=== PATIENT | female | born 1945 | race African-American/Black ===

== ENCOUNTER 2016-08-02 13:06 | Emergency (ER) | payer MEDICARE ==
[~2016-08-02] VITALS: Ht 177.8 cm; Wt 110.2 kg
[~2016-08-02 13:06] MED LIST: BENADRYL25 MG ORAL; COUMADIN10 MG PO; COZAAR50 MG PO; LORATADINE10 M1 PO; MAXIDE PO; METOPROLOL SUCC50 MG ORAL; MONTELUKAST SOD10 MG ORAL; NITROFURANTOIN100 M2 ORAL; ONDANSETRON ODT4 MG PO; PREDNISONE20 MG ORAL; RANITIDINE HCL150 MG ORAL; SPIRONOLACTONE1 EACH ORAL; SYNTHROID150 MCG PO; VALIUM5 MG PO; XARELTO10 MG ORAL
--- NOTE | 2016-08-02 13:51 | Emergency Room Report ---
History of Present Illness General Chief Complaint: Female Urogenital Problems Source: Patient Present Illness HPI Patient is a 70-year-old female who presented after having lower abdominal pain as well as urinary retention. She stated that she had not been able to void for one day. Patient states she has prior history of fibroid uterus. Patient had recently been on antibiotics for urinary tract infection. She had been able to ambulatory. She denied any low back pain. Allergies: Coded Allergies: CEPHALEXIN MONOHYDRATE (Verified Allergy, Severe, Rash, 08/18/12) TETRACYCLINE (Verified Allergy, Severe, Rash, 08/18/12) ASPIRIN (Verified Allergy, Intermediate, ABD CRAMPS, 08/18/12) CIPROFLOXACIN (Verified Allergy, Mild, 06/20/15) hives ERYTHROMYCIN LACTOBIONATE (Verified Allergy, Mild, Rash, ITCH, 08/18/12) IODINE (Verified Allergy, Mild, Itching, 08/18/12) CORN (Verified Allergy, Unknown, Hives, RASH, ITCH, 06/20/15) POTASSIUM (Verified Allergy, Unknown, 06/20/15) Patient History Past Medical History: see triage record Reviewed Nursing Documentation: PMH: Agreed, PSxH: Agreed Nursing Documentation-PMH Past Medical History: No History, Except For Hx Hypertension: Yes Hx Asthma: Yes Hx COPD: Yes Hx Cancer: Yes - LEFT BREAST CANCER, DOUBLE MASTECTOMY Review of Systems All Other Systems: negative except mentioned in HPI Physical Exam Vital Signs Date Time Temp Pulse Resp B/P Pulse Ox O2 Delivery O2 Flow Rate FiO2 08/02/16 13:16 98.4 101 18 172/105 92 Room Air Sp02 EP Interpretation: reviewed, normal General Appearance: normal inspection, well appearing, no apparent distress, alert, GCS 15, non-toxic Head: atraumatic ENT: normal ENT inspection, hearing grossly normal, normal voice Neck: normal inspection, full range of motion, supple, no bony tend Respiratory: normal inspection, lungs clear, normal breath sounds, no respiratory distress, no retraction, no wheezing Cardiovascular #1: regular rate, rhythm, no edema Gastrointestinal: normal inspection, normal bowel sounds, non tender, soft, no guarding, no hernia, tenderness Rectal: normal exam, normal rectal tone Genitourinary: no CVA tenderness Musculoskeletal: normal inspection, back normal, normal range of motion Neurologic: normal inspection, alert, oriented x3, responsive, beverage steward III-XII nml as tested, speech normal Psychiatric: normal inspection, judgement/insight normal, mood/affect normal Skin: other - excoriation to vulvar area Medical Decision Making Diagnostic Impression: Primary Impression: Kidney stone on right side Additional Impression: Yeast dermatitis ER Course Patient presented for abdominal pain. Differential diagnoses included ischemic bowel, appendicitis, perforated viscus, abdominal aortic aneurysm, inferior myocardial infarction, viral gastroenteritis. Because of complexity of patient' s case laboratory testing and imaging studies were ordered. CT the abdomen pelvis read by radiology showed a approximately 2 mm kidney stone. The patient was given IV fluid as well as prescription for antibiotics. The patient was noted to have a large amount of excoriations to her perineal area and was started on a cream for presumed yeast infection.laboratory testing showed a mildly elevated white count. The patient had a Cruz catheter placed initially to rule out acute urinary retention. There is a small amount of clear urine initially . Patient was advised followup with her urologist who had previously seen her for similar symptoms.The patient is advised to follow up with primary care doctor in 1-2 days. Patient is advised to return if any worsening condition or if any changes in status that are concerning. Labs Test 08/02/16 14:15 08/02/16 15:20 Urine Color Pale yellow Urine Appearance Slightly cloudy Urine pH 5 (4.5-8.0) Urine Specific [place] 1.015 (1.005-1.035) Urine Protein 1+ (NEGATIVE) Urine Glucose (UA) Negative (NEGATIVE) Urine Ketones Negative (NEGATIVE) Urine Occult Blood 5+ (NEGATIVE) Urine Nitrite Negative (NEGATIVE) Urine Bilirubin Negative (NEGATIVE) Urine Urobilinogen Normal MG/DL (0.0-1.0) Urine Leukocyte Esterase 1+ (NEGATIVE) Urine RBC 20-30 /HPF (0 - 2) Urine WBC 0-2 /HPF (0 - 2) Urine Squamous Epithelial Cells Few /LPF (NONE/OCC) Urine Bacteria Occasional /HPF (NONE) White Blood Count 12.1 K/UL (4.8-10.8) Red Blood Count 4.46 M/UL (4.20-5.40) Hemoglobin 13.4 G/DL (12.0-16.0) Hematocrit 40.9 % (37.0-47.0) Mean Corpuscular Volume 92 FL (80-99) Mean Corpuscular Hemoglobin 29.9 PG (27.0-31.0) Mean Corpuscular Hemoglobin Concent 32.6 G/DL (32.0-36.0) Red Cell Distribution Width 12.6 % (11.6-14.8) Platelet Count 192 K/UL (150-450) Mean Platelet Volume 6.7 FL (6.5-10.1) Neutrophils (%) (Auto) 74.7 % (45.0-75.0) Lymphocytes (%) (Auto) 14.9 % (20.0-45.0) Monocytes (%) (Auto) 7.2 % (1.0-10.0) Eosinophils (%) (Auto) 2.5 % (0.0-3.0) Basophils (%) (Auto) 0.8 % (0.0-2.0) Prothrombin Time 10.7 SEC (9.30-11.50) Prothromb Time International Ratio 1.1 (0.9-1.1) Activated Partial Thromboplast Time 25 SEC (23-33) Sodium Level 134 mEQ/L (135-145) Potassium Level 4.1 mEQ/L (3.4-4.9) Chloride Level 94 mEQ/L (98-107) Carbon Dioxide Level 23 mEQ/L (20-30) Anion Gap 17 (5-15) Blood Urea Nitrogen 27 mg/dL (7-23) Creatinine 1.1 mg/dL (0.5-0.9) Estimat Glomerular Filtration Rate 59.9 mL/min (>60) Glucose Level 101 mg/dL (74-106) Calcium Level 10.1 mg/dL (8.6-10.2) Total Bilirubin 0.5 mg/dL (0.0-1.2) Aspartate Amino Transf (AST/SGOT) 18 U/L (5-40) Alanine Aminotransferase (ALT/SGPT) 12 U/L (3-33) Alkaline Phosphatase 105 U/L (35-104) Troponin I < 0.30 ng/mL (<=0.30) Total Protein 7.6 g/dL (6.6-8.7) Albumin 3.8 g/dL (3.5-5.2) Globulin 3.8 g/dL Albumin/Globulin Ratio 1.0 (1.0-2.7) Lipase 42 U/L (< 60) Last Vital Signs Date Time Temp Pulse Resp B/P Pulse Ox O2 Delivery O2 Flow Rate FiO2 08/02/16 13:16 98.4 101 18 172/105 92 Room Air Status: unchanged Disposition: ADMITTED INPATIENT Condition: Serious Scripts Clotrimazole* (LOTRIMIN*) 15 Gm Cream..g. 1 APPLIC TOPIC TWICE A DAY, #15 GM Prov: Pedro Barrientos 08/02/16 Docusate Sodium* (COLACE*) 100 Mg Capsule 100 MG ORAL TWICE A DAY, #60 CAP Prov: Pedro Barrientos 08/02/16 Tramadol Hcl* (ULTRAM*) 50 Mg Tablet 50 MG ORAL Q6H Y for For Pain, #30 TAB 0 Refills Prov: Pedro Barrientos 08/02/16 Referrals: NON PHYSICIAN (PCP) Pedro Barrientos Aug 02, 2016 13:51
[2016-08-02 14:59] LABS: APPEARANCE,URINE SLIGHTLY CLOUDY; KETONES,URINE NEGATIVE (NEGATIVE); LEUKOCYTE ESTERASE ,URINE 1+ (NEGATIVE); NITRITE,URINE NEGATIVE (NEGATIVE); PH,URINE 5 (4.5-8.0); PROTEIN,URINE 1+ (NEGATIVE); UROBILINOGEN,URINE NORMAL MG/DL (0.0-1.0)
[2016-08-02 15:07] LABS: BACTERIA,URINE OCCASIONAL /HPF; RBC,URINE 20-30 /HPF (0 - 2); SQUAMOUS EPITHELIAL CELL,UR FEW /LPF (NONE/OCC); WBC,URINE 0-2 /HPF (0 - 2)
[2016-08-02 15:32] VITALS: BP 172/105
[2016-08-02 16:30] LABS: BASOPHILS % (AUTO) 0.8 % (0.0-2.0); EOSINOPHILS % (AUTO) 2.5 % (0.0-3.0); LYMPHOCYTES % (AUTO) 14.9 % (20.0-45.0); MEAN CORPUSCULAR HEMOGLOBIN 29.9 PG (27.0-31.0); MEAN CORPUSCULAR HGB CONC 32.6 G/DL (32.0-36.0); MEAN CORPUSCULAR VOLUME 92 FL (80-99); MEAN PLATELET VOLUME 6.7 FL (6.5-10.1); MONOCYTES % (AUTO) 7.2 % (1.0-10.0); NEUTROPHILS % (AUTO) 74.7 % (45.0-75.0); PLATELET COUNT 192 K/UL (150-450); RED BLOOD COUNT 4.46 M/UL (4.20-5.40); RED CELL DISTRIBUTION WIDTH 12.6 % (11.6-14.8); WHITE BLOOD COUNT 12.1 K/UL (4.8-10.8)
[2016-08-02 16:35] LABS: INR 1.1 (0.9-1.1); PROTHROMBIN TIME 10.7 SEC (9.30-11.50)
[2016-08-02 16:41] LABS: CALCIUM 10.1 mg/dL (8.6-10.2); CREATININE 1.1 mg/dL (0.5-0.9); GLOMERULAR FILTRATION RATE 59.9 mL/min (>60); POTASSIUM 4.1 mEQ/L (3.4-4.9); TOTAL PROTEIN 7.6 g/dL (6.6-8.7)
[2016-08-02 16:48] LABS: TROPONIN I < 0.30 ng/mL (<=0.30)
[2016-08-02] MEDS ORDERED: BACTRIM DS TAB1 EAC1 ORAL (17:05)
[2016-08-02] MEDS ORDERED: TRAMADOL HCL50 MG ORAL (17:05)
[2016-08-02] MEDS ORDERED: CLOTRIMAZOLE15 GM TOPIC (17:18)
[2016-08-02] MEDS ORDERED: COLACE100 MG ORAL (17:18)
[2016-08-02 17:27] VITALS: BP 164/98
[2016-08-02 18:34] VITALS: BP 164/98
--- NOTE | 2016-08-03 09:28 | Diagnostic Imaging Report ---
Indication: Abdominal pain Technique: Continuous helical transaxial imaging of the abdomen and pelvis was obtained from the lung bases to the pubic symphysis. No intravenous contrast was administered. Coronal 2-D reformats were also obtained. Total Dose length Product (DLP): [address] Dose Index Volume (CTDIvol): 19 mGy Comparison: 06/20/15 Findings: Mild basilar atelectasis demonstrated. Right perinephric stranding and hydronephrosis demonstrated. Hydroureter to the level of the right UVJ demonstrated. The obstruction is secondary to a 2 mm stone noted in the right UVJ. Cruz catheter is present. Urinary bladder is nondistended. Adrenal glands are nodular bilaterally. Suggest evaluation with MRI. There are calcifications in the uterus consistent with a fibroid. Diverticula noted within the colon without evidence of diverticulitis. IVC filter noted. Arterial vascular consultations are present. There is no free fluid identified. No evidence of bowel obstruction or free air. Small multiple hernia containing fat demonstrated. Normal appendix noted. Impression: Mild to moderate right hydronephrosis and perinephric stranding secondary to a 2 mm right UVJ stone. Incidental findings on this study include IVC filter, diverticulosis of the colon, nodularity of bilateral adrenal glands (which may be evaluated with MRI), atherosclerotic vascular disease, normal appendix, calcified uterine fibroids, bilateral subsegmental basilar atelectasis. [facility] has communicated the preliminary results to the Emergency Department. Their findings are largely concordant with this report. The CT scanner at [facility] is accredited by the [employer] and the scans are performed using protocols designed to limit radiation exposure to as low as reasonably achievable to attain images of sufficient resolution adequate for diagnostic evaluation.
== END 2016-08-02 18:36 | disposition home or self-care (01) ==
LOC: EMR 13:43
DX: N20.0 Calculus of kidney (principal); B37.9 Candidiasis, unspecified; I10 Essential (primary) hypertension; J45.909 Unspecified asthma, uncomplicated; J44.9 Chronic obstructive pulmonary disease, unspecified; Z85.3 Personal history of malignant neoplasm of breast; Z90.13 Acquired absence of bilateral breasts and nipples; Z88.1 Allergy status to other antibiotic agents; Z79.82 Long term (current) use of aspirin; Z91.041 Radiographic dye allergy status; Z91.018 Allergy to other foods
CPT/HCPCS: 36415; 74176; 80053; 81003; 83690; 84484; 85025; 85610; 85730; 96374